=== PATIENT | female | born 1960 | race African-American/Black ===

== ENCOUNTER 2016-12-15 02:37 | Emergency (ER) | payer MEDICARE, MEDICAID ==
[~2016-12-15] VITALS: Ht 172.7 cm; Wt 88.5 kg
[2016-12-15 11:00] LABS: Basophils # (auto) 0 uL; Basophils % (auto) 0.6 % (0.0-2.0); CONDITION Y; Eosinophils # (auto) 0 uL; Hematocrit 39.9 % (36.0-46.0); Lymphocytes # (auto) 2.1 uL; Lymphocytes % (auto) 44.3 % (10.0-50.0); Mean Corpuscular Hemoglobin 27.2 pg (28.0-32.0); Mean Corpuscular Hgb Conc. 32.7 g/dL (32.0-36.0); Mean Corpuscular Volume 83.3 fL (80.0-100.0); Mean Platelet Volume 10.1 fL (6.9-10.8); Monocytes # (auto) 0.3 uL; Monocytes % (auto) 6.4 % (0.0-12.0); Neutrophils # (auto) 2.3 uL; Neutrophils % (auto) 47.7 % (37.0-80.0); Platelet Count (auto) 217 10^3/uL (140-450); Red Cell Distribution Width 15.1 % (11.8-14.3); White Blood Cell 4.8 10^3/uL (4.4-10.8)
[2016-12-15] MEDS ORDERED: SODIUM CHLORIDE 0.9% 1,000 ML IV ONE (11:15)
[2016-12-15 11:22] LABS: BUN/Creatinine Ratio 9.9; Bilirubin, Total 0.3 mg/dL (0.2-1.0); Calcium 8.4 mg/dL (8.5-10.1); Potassium 3.4 mmol/L (3.5-5.1); Total Protein 6.9 g/dL (6.4-8.2)
[2016-12-15 12:39] LABS: B-Type Natriuretic Peptide 1.05 pg/mL (0-100)
[2016-12-15 12:45] LABS: Temperature: 22.8 C (20.0-25.0)
[2016-12-15] MEDS ORDERED: POTASSIUM CHL 10% (20 MEQ/15ML) 15ml ORAL SOLN PO ONE (14:00)
[2016-12-15] MEDS ORDERED: IPRATROPIUM BROM 0.5 MG/2.5ML INH SOL NEB ONE (15:15)
[2016-12-15] MEDS ORDERED: ALBUTEROL SULF 2.5 MG/0.5ML(0.5%) NEB SOLN NEB ONE (15:15)
[2016-12-15] MEDS ORDERED: SPIRONOLACTONE 25 MG TAB PO ONE (16:00)
[2016-12-15 16:12] LABS: Urine Bilirubin Negative (Negative); Urine Blood 1+ /uL (Negative); Urine Color Yellow (Yellow); Urine Glucose 3+ mg/dL (Normal); Urine Ketone Negative (Negative); Urine Mucus FEW (None Seen); Urine Nitrite Negative (Negative); Urine RBC 2 /hpf (0 - 4); Urine Squamous Epithelial Cell FEW /hpf (<5); Urine pH 5.5 (5.0-8.0)
[2016-12-15] MEDS: FUROSEMIDE 40 MG/4 ML VIAL IV ONE ×2 (16:57→17:03)
[2016-12-15 18:10] VITALS: BP 117/63
== END 2016-12-15 16:49 | disposition home or self-care (01) ==
LOC: EDBD 02:37 → ER 02:40
DX: E87.6 Hypokalemia (principal); R73.9 Hyperglycemia, unspecified; E46 Unspecified protein-calorie malnutrition; F20.9 Schizophrenia, unspecified; F17.210 Nicotine dependence, cigarettes, uncomplicated; J45.909 Unspecified asthma, uncomplicated; E66.01 Morbid (severe) obesity due to excess calories; Z68.29 Body mass index [BMI] 29.0-29.9, adult
CPT/HCPCS: 36415; 71020; 71250; 80053; 81001; 83735; 83880; 84443; 85025; 93005; 94640; 94761; 96361; 96374; 99285; J1940

== ENCOUNTER 2016-12-16 00:41 | Emergency (ER) | payer MEDICARE, MEDICAID ==
[~2016-12-16] VITALS: Ht 170.2 cm; Wt 95.3 kg
[2016-12-16] MEDS ORDERED: ALBUTEROL SULF 2.5 MG/0.5ML(0.5%) NEB SOLN ONE (01:21)
[2016-12-16] MEDS ORDERED: IPRATROPIUM BROM 0.5 MG/2.5ML INH SOL ONE (01:21)
[2016-12-16 02:23] LABS: Basophils # (auto) 0 uL; Basophils % (auto) 0.4 % (0.0-2.0); CONDITION Y; DEFINITIVE SEE PRINTOUT; Eosinophils # (auto) 0 uL; Hematocrit 37.1 % (36.0-46.0); Hemoglobin 11.9 g/dL (12.2-16.2); Lymphocytes # (auto) 1.9 uL; Lymphocytes % (auto) 41.5 % (10.0-50.0); Mean Corpuscular Hemoglobin 26.8 pg (28.0-32.0); Mean Corpuscular Hgb Conc. 32.1 g/dL (32.0-36.0); Mean Corpuscular Volume 83.5 fL (80.0-100.0); Mean Platelet Volume 10.4 fL (6.9-10.8); Monocytes # (auto) 0.3 uL; Monocytes % (auto) 6.6 % (0.0-12.0); Neutrophils # (auto) 2.4 uL; Neutrophils % (auto) 50.5 % (37.0-80.0); Platelet Count (auto) 221 10^3/uL (140-450); Red Cell Distribution Width 15.3 % (11.8-14.3); White Blood Cell 4.7 10^3/uL (4.4-10.8)
[2016-12-16 02:36] LABS: Calcium 8.6 mg/dL (8.5-10.1); Potassium 3.6 mmol/L (3.5-5.1)
[2016-12-16 02:38] LABS: BUN/Creatinine Ratio 12.7
[2016-12-16 02:49] LABS: Bilirubin, Total 0.2 mg/dL (0.2-1.0); Total Protein 6.3 g/dL (6.4-8.2)
[2016-12-16 02:58] LABS: B-Type Natriuretic Peptide 12.5 pg/mL (0-100)
[2016-12-16 02:59] LABS: Temperature: 23.9 C (20.0-25.0)
[2016-12-16 07:39] VITALS: BP 115/76
== END 2016-12-16 09:39 | disposition home or self-care (01) ==
LOC: EDBD 00:41 → ER 00:43
DX: I50.9 Heart failure, unspecified (principal); E11.65 Type 2 diabetes mellitus with hyperglycemia; R03.0 Elevated blood-pressure reading, without diagnosis of hypertension; J45.909 Unspecified asthma, uncomplicated; F17.210 Nicotine dependence, cigarettes, uncomplicated
CPT/HCPCS: 36415; 80053; 83880; 85025; 93970; 94644

== ENCOUNTER 2018-09-03 20:37 | Emergency (ER) | payer MEDICARE, MEDICAID ==
[~2018-09-03] VITALS: Ht 167.6 cm; Wt 122.5 kg
[2018-09-03 21:43] LABS: Basophils # (auto) 0 uL; Eosinophils # (auto) 0.1 uL; Lymphocytes # (auto) 1.6 uL; Monocytes # (auto) 0.4 uL; Neutrophils # (auto) 3.2 uL
[2018-09-03 21:45] LABS: Basophils % (auto) 0.7 % (0.0-2.0); Hematocrit 38.1 % (36.0-46.0); Hemoglobin 12.1 g/dL (12.2-16.2); Mean Corpuscular Hemoglobin 25.1 pg (28.0-32.0); Mean Corpuscular Hgb Conc. 31.7 g/dL (32.0-36.0); Mean Corpuscular Volume 79.2 fL (80.0-100.0); Monocytes % (auto) 7.9 % (0.0-12.0); Neutrophils % (auto) 59.4 % (37.0-80.0); Nucleated Red Blood Cells % 0.2 %; Platelet Count (auto) 153 10^3/uL (140-450); Red Blood Cells 4.82 10^6/uL (4.0-5.20); Red Cell Distribution Width 15.6 % (11.8-14.3); White Blood Cell 5.4 10^3/uL (4.4-10.8)
[2018-09-03 21:54] LABS: Salicylate 3.3 mg/dL (2.8-20.0)
[2018-09-03 21:55] LABS: Alanine Aminotransferase 32 U/L (13-56); Anion Gap 8 (5-15); Aspartate Aminotransferase 18 U/L (15-37); BUN/Creatinine Ratio 14.7; Blood Alcohol < 3.0 mg/dL (0-5); Blood Urea Nitrogen 10 mg/dL (7-18); Calcium 8.6 mg/dL (8.5-10.1); Carbon Dioxide 26 mmol/L (21-32); Chloride 107 mmol/L (98-107); GFR African American 115 mL/min; GFR Non-African American 95 mL/min; Glucose 168 mg/dL (74-106); Potassium 3.7 mmol/L (3.5-5.1); Sodium 141 mmol/L (136-145)
[2018-09-03 21:57] LABS: Acetaminophen < 2.0 ug/mL (10-30)
[2018-09-03 21:58] LABS: Alkaline Phosphatase 93 U/L (45-117); Bilirubin, Total 0.8 mg/dL (0.2-1.0); Total Protein 6.8 g/dL (6.4-8.2)
[2018-09-04 08:58] VITALS: BP 129/77
[2018-09-04 09:18] LABS: Urine Bacteria FEW /hpf (None Seen); Urine Blood TRACE /uL (Negative); Urine Mucus FEW (None Seen); Urine Specific Gravity 1.023 (1.001-1.035); Urine WBC 7 /hpf (0 - 5)
[2018-09-04 09:30] LABS: Alcohol, Urine < 3.0 mg/dL (0-5); Barbiturate Scree,Urine NEGATIVE (NEGATIVE); Benzodiazephine Screen, Urine NEGATIVE (NEGATIVE); Cannabinoid Screen, Urine NEGATIVE (NEGATIVE); Cocaine Screen, Urine POSITIVE (NEGATIVE); Opiate Scree,Urine NEGATIVE (NEGATIVE); Phencyclidine Screen, Urine NEGATIVE (NEGATIVE)
[2018-09-04 09:37] LABS: Amphetamine Screen, Urine NEGATIVE (NEGATIVE)
[2018-09-04] MEDS ORDERED: SULFAMETHOX W/TRIMETH(800/160MG) DS TAB PO ONE (09:45)
== END 2018-09-04 10:24 | disposition home or self-care (01) ==
LOC: EDBD 20:37 → ER 20:40
DX: N39.0 Urinary tract infection, site not specified (principal); F41.9 Anxiety disorder, unspecified; F32.9 Major depressive disorder, single episode, unspecified; F20.9 Schizophrenia, unspecified; J45.909 Unspecified asthma, uncomplicated; F17.210 Nicotine dependence, cigarettes, uncomplicated; Z59.0 Homelessness
CPT/HCPCS: 36415; 71045; 80053; 80307; 80320; 80329; 81001; 83735; 83880; 84484; 85025; 93005; 94761

== ENCOUNTER → 2019-09-20 | Emergency (ER) | payer MEDICARE, MEDICAID ==
[~2019-09-20] VITALS: Ht 165.1 cm; Wt 138.3 kg
[~2019-09-20] MED LIST: HALOPERIDOL LACTATE 5 MG/ML INJ VIAL IM ONE; LORazepam 2MG/ML-1ML VIAL IM ONE; diphenhdrAMINE HCL 50 MG/1 ML VL IM ONE
[2019-09-20 07:54] VITALS: BP 144/62
[2019-09-20 08:19] LABS: Basophils # (auto) 0 10 ^3/uL (0-0.2); Eosinophils # (auto) 0 10 ^3/uL (0-0.8); Eosinophils % (auto) 0.8 % (0.0-7.0); Hemoglobin 11.3 g/dL (12.2-16.2); Mean Corpuscular Hemoglobin 24.9 pg (28.0-32.0); Monocytes # (auto) 0.6 10 ^3/uL (0-1.3); Neutrophils # (auto) 3.5 10 ^3/uL (1.6-8.6)
[2019-09-20 08:21] LABS: Basophils % (auto) 0.4 % (0.0-2.0); Hematocrit 35.3 % (36.0-46.0); Lymphocytes # (auto) 1.3 10 ^3/uL (0.4-5.4); Lymphocytes % (auto) 24.7 % (10.0-50.0); Mean Corpuscular Volume 77.7 fL (80.0-100.0); Monocytes % (auto) 10.2 % (0.0-12.0); Neutrophils % (auto) 63.9 % (37.0-80.0); Nucleated Red Blood Cells % 0.1 %; Platelet Count (auto) 208 10^3/uL (140-450); Red Blood Cells 4.54 10^6/uL (4.0-5.20); Red Cell Distribution Width 15.1 % (11.8-14.3); White Blood Cell 5.4 10^3/uL (4.4-10.8)
[2019-09-20 08:44] LABS: Calcium 8.9 mg/dL (8.5-10.1); Potassium 3.3 mmol/L (3.5-5.1)
[2019-09-20 08:51] LABS: Albumin 3.9 g/dL (3.4-5.0); BUN/Creatinine Ratio 17.4; Bilirubin, Total 0.4 mg/dL (0.2-1.0); Total Protein 7.9 g/dL (6.4-8.2)
== END | disposition home or self-care (01) ==
LOC: ER 07:23
DX: J40 Bronchitis, not specified as acute or chronic (principal); F20.9 Schizophrenia, unspecified; F17.210 Nicotine dependence, cigarettes, uncomplicated; Z59.0 Homelessness
CPT/HCPCS: 36415; 71045; 80053; 85025; 96372; 99284; J1200; J1630; J2060